=== PATIENT | female | born 1950 | race African-American/Black ===

== ENCOUNTER 2017-12-16 08:20 | Day surgery (SDC) | payer BC ==
[2017-12-15 19:26] VITALS: BMI 35.4
[2017-12-16] MEDS ORDERED: BUPIVACAINE HCL/PF 0.5% (5MG/ML) 10 ML VIAL ONE (09:25)
[2017-12-16] MEDS ORDERED: LIDOCAINE HCL 2% (20ML MULTI-DOSE VIAL) NR ONE (09:26)
--- NOTE | 2017-12-16 09:26 | HP ---
[facility] - Chief Complaint Chief Complaint: left hand pain/numbness - Past Medical History Allergies/Adverse Reactions: Allergies Allergy/AdvReac Type Severity Reaction Status Date / Time No Known Drug Allergies Allergy Verified 12/16/17 08:53 - Current Medications Current Medications: Home Medications Medication Instructions Recorded metFORMIN HCL [Metformin HCl] 500 mg PO BID 09/18/15 Losartan/Hydrochlorothiazide 1 each PO DAILY 09/20/15 [Hyzaar 100-25 Tablet] Metoprolol Tartrate 50 mg PO BID 09/20/15 Sertraline HCl 25 mg PO HS 09/20/15 Simvastatin [Zocor -] 20 mg PO HS 09/20/15 Multivit-Min/Iron/Folic/Lutein 1 each PO DAILY 12/15/17 [Centrum Silver Women Tablet] Hydrocodone/Acetaminophen [[place] 1 each PO Q6H PRN #20 tablet MDD 4 12/16/17 5-325 Tablet] [facility] Physical Exam - Physical Examination Vital Signs: Vital Signs Period Temp Pulse Resp BP Sys/[place] Pulse Ox Last 24 Hr 98.3 F 67 18 142/73 98 General Appearance: Well Nourished, Well Developed, Alert & Oriented x3 ENT: Clear Lung: Normal air movement Heart: Regular rate & rhythm Extremities: Other (left hand- + tinels, + phalens EMG + cts) Neurological: Intact, Alert, Oriented [facility]ellite Impression/Plan - Impression/Plan Impression: left cts Operative Procedure: left ctr Date to be Performed: 12/16/17
[2017-12-16] MEDS ORDERED: MIDAZOLAM HCL 2 MG/2 ML SINGLE DOSE VIAL ONE (10:13)
[2017-12-16] MEDS ORDERED: ceFAZolin SODIUM 1 GM VIAL IVPB ONE (10:50)
[2017-12-16] MEDS ORDERED: LIDOCAINE HCL 2% (50ML VIAL) PNB ONE (10:58)
[2017-12-16] MEDS ORDERED: BUPIVACAINE HCL/PF (5 MG/ML) 30 ML VIAL IJ ONE (10:58)
[2017-12-16] MEDS ORDERED: PROPOFOL 20 ML ONE (11:08)
[2017-12-16] MEDS ORDERED: LABETALOL HCL 5 MG/1 ML (100MG/20 ML VIAL) ONE (11:12)
[2017-12-16] MEDS ORDERED: ONDANSETRON 4 MG/2 ML VIAL IVPUSH PRN (11:26)
[2017-12-16] MEDS ORDERED: oxyCODONE HCL 5 MG TABLET PO PRN ×2 (11:26)
[2017-12-16] MEDS ORDERED: LACTATED RINGERS SOLUTION 1,000 ML IV SCH (11:30)
--- NOTE | 2017-12-16 12:23 | OP ---
Operative Note - Note: Operative Date: 12/16/17 ([facility]) Pre-Operative Diagnosis: left cts Operation: left ctr Post-Operative Diagnosis: Same as Pre-op Surgeon: Michael Lei Anesthesia: Local, MAC Estimated Blood Loss (mls): 0 (tourniquet) Operative Report Dictated: Yes
[2017-12-16 13:30] VITALS: TEMP 98.5
[2017-12-16 15:32] VITALS: BP 139/77; PULSE 67
--- NOTE | 2017-12-16 16:16 | SPEC ---
DATE OF OPERATION: 12/16/2017 PREOPERATIVE DIAGNOSIS: Left carpal tunnel syndrome. POSTOPERATIVE DIAGNOSIS: Left carpal tunnel syndrome. PROCEDURE: Left carpal tunnel release and tenosynovectomy. SURGEON: Michael Lei MD ASSISTANTS: None. ANESTHESIA: Luis Vickers CRNA, overseen by Jimmy Garrison MD. MAC anesthesia, local injection of 12 mL 0.5% Marcaine and 1% lidocaine mix. DRAINS: None. COMPLICATIONS: None. SPECIMEN: Tenosynovium, left wrist. BLOOD LOSS: None. BLOOD GIVEN: None. FLUID REPLACEMENT: 500 mL of Plasmalyte. INDICATIONS: This patient is a 67-year-old female with a preoperative diagnosis of severe recurrent left carpal tunnel syndrome. After understanding the potential risks, complications, alternatives, and benefits to surgical versus nonsurgical treatment, the patient elected to undergo this procedure. The patient understands that she may not get complete relief of her symptoms, including continuation of the numbness. DESCRIPTION OF PROCEDURE: The patient was brought to the operating room, peripheral IV placed and intravenous sedation was given. One gram of intravenous Ancef was given. MAC anesthesia was induced. A tourniquet was applied to the left upper arm and the left upper extremity was prepped and draped in sterile fashion. The entire case was done under 3.8 loupe magnification. A marking pen was utilized to althea out a longitudinal incision in an already existing skin crease. Twenty mL of 0.5% Marcaine mixed with 1% Lidocaine was injected in and around the surgical incision. The left upper extremity was elevated, exsanguinated with an Esmarch bandage and the tourniquet inflated to 250 mmHg. A No. 15 scalpel blade was utilized to cut down through the skin. Subcutaneous hemostasis was achieved with the bipolar cautery. Dissection was done through the superficial palmar fascia. Self-retaining retractors were placed into the wound. Under direct visualization, the transverse carpal ligament was transected with a No. 15 scalpel blade, exposing the median nerve and the contents of the carpal tunnel. The distal and proximal extents of the release were completed with a Littler scissor and checked with irrigation and my small finger. They were seen to be complete. Limited dissection was done on the radial side of the median nerve and more extensive dissection was done on the ulnar side of the median nerve. The patients nerve was seen to be quite compressed by epineurium and therefore a limited epineurotomy was performed. A Ragnell retractor was used to gently retract the median nerve in a radial direction. The patient had a lot of tenosynovitis and therefore a tenosynovectomy was performed off all 9 flexor tendons. This was passed off the field as tenosynovium, left wrist. The floor of the carpal tunnel was checked. There were no abnormal masses or ganglion cysts. The area was copiously irrigated and washed out and closure begun. Undyed 4-0 Vicryl was used to close the deep dermal layer. Final skin reapproximation was done with horizontal mattress 4-0 nylon sutures. The area was then washed and dried, covered with Xeroform, 4x4s, fluffs between the fingers, Webril and a 4-inch plaster roll was utilized to make a volar splint, which was then wrapped with Suzanne and Coban. The tourniquet was taken down after a total tourniquet time of 18 minutes. There were no complications during the case. The patient tolerated the procedure well and was brought to the ambulatory recovery room in stable condition. Jose [id number]
--- NOTE | 2017-12-17 15:47 | PATH ---
Surgical Pathology Report Patient Name: BARBIE SINGH [facility]. Rec. #: [id number] /Age/Gender: 1950 (Age: 67) / F Account: [id number] Location: [facility] SURGICAL Taken: 12/16/2017 Received: 12/16/2017 Reported: 12/17/2017 Physicians: Michael Lei M.D. Specimen(s) Received TENOSYNOVIUM Clinical History Left carpal syndrome Final Diagnosis TENOSYNOVIUM, LEFT, EXCISION: BENIGN DENSE FIBROCONNECTIVE TISSUE. Electronically Signed Yanet Jenkins M.D. Gross Description Received in formalin labeled "tenosynovium," is a 1.4 x 0.9 x 0.2 cm aggregate of multiple troy-yellow portions of soft tissue, consistent with tenosynovium. The specimen is entirely submitted in one cassette. /12/16/201712/16/2017
== END 2017-12-16 14:20 | disposition home or self-care (01) ==
LOC: JASU-SURG 08:20
PROVIDERS: ATTEND Orthopaedic Surgery
PROC: 01N50ZZ Release Median Nerve, Open Approach (ICD-10-PCS; principal; 2017-12-16 10:00)
DX: G56.02 Carpal tunnel syndrome, left upper limb (principal); E11.9 Type 2 diabetes mellitus without complications; I10 Essential (primary) hypertension; Z79.84 Long term (current) use of oral hypoglycemic drugs
CPT/HCPCS: 82962; 88304-TC; 94760

== ENCOUNTER 2020-04-12 21:56 | Inpatient (IN) | payer OTHER, BC ==
[2020-04-12 23:18] LABS: BASO % 1.6 % (0-2.0); EOS % 7.1 % (0-4.5); HEMATOCRIT 43.3 % (32.4-45.2); HEMOGLOBIN 14.5 GM/dL (10.7-15.3); LYMPH % 35.1 % (8-40); MCH 30.1 pg (25.7-33.7); MCHC 33.4 g/dl (32.0-36.0); MEAN CELL VOLUME 90.1 fl (80-96); MEAN PLT VOLUME 8.3 fl (7.5-11.1); MONO % 9.9 % (3.8-10.2); NEUT % 46.3 % (42.8-82.8); PLATELET COUNT 259 K/MM3 (134-434); RBC 4.81 M/mm3 (3.60-5.2); RDW 13.2 % (11.6-15.6); WHITE BLOOD COUNT 9.3 K/mm3 (4.0-10.0)
[2020-04-12 23:41] LABS: CHLORIDE 104 mmol/L (98-107); POTASSIUM 3.8 mmol/L (3.5-5.1); SODIUM 140 mmol/L (136-145)
[2020-04-12 23:42] LABS: CALCIUM 9.4 mg/dL (8.5-10.1)
[2020-04-12 23:43] LABS: ALBUMIN 3.6 g/dl (3.4-5.0); ANION GAP 9 MMOL/L (8-16); BLOOD UREA NITROGEN 13.8 mg/dL (7-18); CO2 28 mmol/L (21-32); GLUCOSE,RANDOM 119 mg/dL (74-106)
[2020-04-12 23:46] LABS: CREATININE 0.8 mg/dL (0.55-1.3); SGOT/AST 22 U/L (15-37); SGPT/ALT 20 U/L (13-61)
[2020-04-12 23:48] LABS: BILIRUBIN,TOTAL 0.4 mg/dL (0.2-1); TOT PROT 7.4 g/dl (6.4-8.2)
[2020-04-12 23:50] LABS: ALK PHOS 93 U/L (45-117)
[2020-04-13] MEDS ORDERED: ASPIRIN 325 MG TABLET PO ONE (00:58)
[2020-04-13] MEDS ORDERED: ASPIRIN 325 MG ENTERIC COATED TABLET (FP) ONE (01:36)
[2020-04-13 02:09] LABS: EPI CELLS 5 /uL (0-25.1); HYALINE CASTS 0 /uL (0-3.1); URINE APPEARANCE CLEAR; URINE BACTERIA 522 /uL (0-1359); URINE BILIRUBIN NEGATIVE (NEGATIVE); URINE COLOR YELLOW; URINE GLUCOSE (UA) NEGATIVE (NEGATIVE); URINE KETONE NEGATIVE (NEGATIVE); URINE LEUK ESTERASE 1+ (NEGATIVE); URINE NITRITE NEGATIVE (NEGATIVE); URINE PROTEIN NEGATIVE (NEGATIVE); URINE RBC 13 /uL (0-23.9); URINE WBC 116 /uL (0-25.8)
[2020-04-13] MEDS ORDERED: CEFTRIAXONE 1 GM in DEXTROSE 5%-WATER - 100 ML IVPB ONE (02:24)
[2020-04-13] MEDS ORDERED: CEFTRIAXONE 1 GM/50 ML BAG ONE (03:40)
[2020-04-13] MEDS: INSULIN SLIDING SCALE (NOVOLOG) 1 VIAL SQ SCH ×3 (07:50→16:54)
[2020-04-13 08:19] LABS: BASO % 1.1 % (0-2.0); EOS % 7.1 % (0-4.5); HEMATOCRIT 41.5 % (32.4-45.2); HEMOGLOBIN 13.7 GM/dL (10.7-15.3); LYMPH % 36.6 % (8-40); MCH 29.7 pg (25.7-33.7); MCHC 33.1 g/dl (32.0-36.0); MEAN CELL VOLUME 89.7 fl (80-96); MEAN PLT VOLUME 8.6 fl (7.5-11.1); MONO % 7.9 % (3.8-10.2); NEUT % 47.3 % (42.8-82.8); PLATELET COUNT 233 K/MM3 (134-434); RBC 4.63 M/mm3 (3.60-5.2); RDW 13.6 % (11.6-15.6); WHITE BLOOD COUNT 7.9 K/mm3 (4.0-10.0)
[2020-04-13 08:31] LABS: POTASSIUM 3.4 mmol/L (3.5-5.1)
[2020-04-13 08:31] LABS: PHENCYCLIDINE,URINE NEGATIVE ng/ml (CUTOFF=25); URINE AMPHETAMINES NEGATIVE ng/ml (CUTOFF=500); URINE BENZODIAZEPINES NEGATIVE ng/ml (CUTOFF=200)
[2020-04-13 08:37] LABS: ALBUMIN 3.7 g/dl (3.4-5.0); BLOOD UREA NITROGEN 12.1 mg/dL (7-18); CALCIUM 9.2 mg/dL (8.5-10.1); MAGNESIUM 1.8 mg/dL (1.8-2.4)
[2020-04-13 08:41] LABS: CREATININE 0.7 mg/dL (0.55-1.3)
[2020-04-13 08:42] LABS: METHADONE, UR NEGATIVE ng/ml (CUTOFF=300); OPIATES, URI NEGATIVE ng/ml (CUTOFF=300); URINE BARBITURATES NEGATIVE ng/ml (CUTOFF=200)
[2020-04-13 08:43] LABS: BILIRUBIN,TOTAL 0.5 mg/dL (0.2-1); TOT PROT 7.2 g/dl (6.4-8.2)
[2020-04-13 08:45] LABS: COCAINE, UR POSITIVE ng/ml (CUTOFF=300)
[2020-04-13] MEDS ORDERED: ENOXAPARIN NA (PORCINE) 40 MG/0.4 ML DISP.SYRIN SQ ONE (10:28)
[2020-04-13] MEDS: ENOXAPARIN NA (PORCINE) 40 MG/0.4 ML DISP.SYRIN SQ SCH (10:34)
[2020-04-13] MEDS: METOPROLOL TARTRATE 50 MG TABLET (FP) PO SCH (21:42)
[2020-04-13 22:45] VITALS: BMI 37.3
[2020-04-14] MEDS: INSULIN SLIDING SCALE (NOVOLOG) 1 VIAL SQ SCH ×3 (06:04→16:29)
[2020-04-14 08:53] LABS: BASO % 1.2 % (0-2.0); EOS % 5.8 % (0-4.5); HEMATOCRIT 40.9 % (32.4-45.2); HEMOGLOBIN 13.3 GM/dL (10.7-15.3); MCH 29.3 pg (25.7-33.7); MCHC 32.5 g/dl (32.0-36.0); MEAN PLT VOLUME 8.3 fl (7.5-11.1); MONO % 8.7 % (3.8-10.2); NEUT % 52.3 % (42.8-82.8); PLATELET COUNT 223 K/MM3 (134-434); RBC 4.55 M/mm3 (3.60-5.2); RDW 13.7 % (11.6-15.6); WHITE BLOOD COUNT 6.7 K/mm3 (4.0-10.0)
[2020-04-14 09:00] LABS: POTASSIUM 3.7 mmol/L (3.5-5.1)
[2020-04-14 09:04] LABS: CALCIUM 8.9 mg/dL (8.5-10.1)
[2020-04-14 09:05] LABS: BLOOD UREA NITROGEN 14.1 mg/dL (7-18)
[2020-04-14 09:08] LABS: CREATININE 0.6 mg/dL (0.55-1.3)
[2020-04-14] MEDS ORDERED: DEXTROSE 5%-WATER - 50 ML IVPB ONE (09:49)
[2020-04-14] MEDS ORDERED: cefTRIAXone SODIUM 1 GM VIAL ONE (09:49)
[2020-04-14] MEDS: METOPROLOL TARTRATE 50 MG TABLET (FP) PO SCH (10:00)
[2020-04-14] MEDS: CEFTRIAXONE 1 GM in DEXTROSE 5%-WATER - 50 ML IVPB SCH (10:00)
[2020-04-14] MEDS: ASPIRIN 81 MG CHEWABLE TABLETS PO SCH (10:00)
[2020-04-14] MEDS: ENOXAPARIN NA (PORCINE) 40 MG/0.4 ML DISP.SYRIN SQ SCH (11:15)
[2020-04-14] MEDS: LOSARTAN 50MG/HCTZ 12.5MG 1 TAB PO SCH (11:15)
[2020-04-14] MEDS: ATORVASTATIN CA 40 MG TABLET (FP) PO SCH (21:10)
[2020-04-15] MEDS: INSULIN SLIDING SCALE (NOVOLOG) 1 VIAL SQ SCH ×3 (06:36→17:23)
[2020-04-15 06:39] LABS: HEMATOCRIT 40.4 % (32.4-45.2); HEMOGLOBIN 13.5 GM/dL (10.7-15.3); MCH 29.9 pg (25.7-33.7); MCHC 33.5 g/dl (32.0-36.0); MEAN CELL VOLUME 89.5 fl (80-96); MEAN PLT VOLUME 8.3 fl (7.5-11.1); PLATELET COUNT 232 K/MM3 (134-434); RBC 4.51 M/mm3 (3.60-5.2); RDW 13.3 % (11.6-15.6); WHITE BLOOD COUNT 6.6 K/mm3 (4.0-10.0)
[2020-04-15 06:45] LABS: POTASSIUM 3.5 mmol/L (3.5-5.1)
[2020-04-15 06:49] LABS: CALCIUM 8.8 mg/dL (8.5-10.1)
[2020-04-15 06:50] LABS: BLOOD UREA NITROGEN 14.9 mg/dL (7-18)
[2020-04-15 06:53] LABS: CREATININE 0.6 mg/dL (0.55-1.3)
[2020-04-15] MEDS ORDERED: cefTRIAXone SODIUM 1 GM VIAL ONE (08:32)
[2020-04-15] MEDS ORDERED: DEXTROSE 5%-WATER - 50 ML IVPB ONE (08:32)
[2020-04-15] MEDS: LOSARTAN 50MG/HCTZ 12.5MG 1 TAB PO SCH (09:22)
[2020-04-15] MEDS: ENOXAPARIN NA (PORCINE) 40 MG/0.4 ML DISP.SYRIN SQ SCH (09:23)
[2020-04-15] MEDS: CEFTRIAXONE 1 GM in DEXTROSE 5%-WATER - 50 ML IVPB SCH (09:23)
[2020-04-15] MEDS: ASPIRIN 81 MG CHEWABLE TABLETS PO SCH (09:23)
[2020-04-15] MEDS: ATORVASTATIN CA 40 MG TABLET (FP) PO SCH (21:22)
[2020-04-16] MEDS: INSULIN SLIDING SCALE (NOVOLOG) 1 VIAL SQ SCH ×3 (06:44→17:52)
[2020-04-16] MEDS ORDERED: DEXTROSE 5%-WATER - 50 ML IVPB ONE (08:51)
[2020-04-16] MEDS ORDERED: cefTRIAXone SODIUM 1 GM VIAL ONE (08:51)
[2020-04-16] MEDS: ENOXAPARIN NA (PORCINE) 40 MG/0.4 ML DISP.SYRIN SQ SCH (09:08)
[2020-04-16] MEDS: CEFTRIAXONE 1 GM in DEXTROSE 5%-WATER - 50 ML IVPB SCH (09:08)
[2020-04-16] MEDS: ASPIRIN 81 MG CHEWABLE TABLETS PO SCH (09:08)
[2020-04-16] MEDS: LOSARTAN 50MG/HCTZ 12.5MG 1 TAB PO SCH (09:08)
[2020-04-16] MEDS: ATORVASTATIN CA 40 MG TABLET (FP) PO SCH (21:38)
[2020-04-17] MEDS: INSULIN SLIDING SCALE (NOVOLOG) 1 VIAL SQ SCH ×3 (06:05→16:59)
[2020-04-17 08:16] LABS: BASO % 1.1 % (0-2.0); EOS % 6.3 % (0-4.5); HEMATOCRIT 41.3 % (32.4-45.2); HEMOGLOBIN 13.9 GM/dL (10.7-15.3); LYMPH % 32.6 % (8-40); MCH 30.6 pg (25.7-33.7); MCHC 33.7 g/dl (32.0-36.0); MEAN CELL VOLUME 90.9 fl (80-96); MEAN PLT VOLUME 8.7 fl (7.5-11.1); MONO % 9.2 % (3.8-10.2); NEUT % 50.8 % (42.8-82.8); PLATELET COUNT 232 K/MM3 (134-434); RBC 4.55 M/mm3 (3.60-5.2); RDW 13.6 % (11.6-15.6); WHITE BLOOD COUNT 7.6 K/mm3 (4.0-10.0)
[2020-04-17 08:24] LABS: CHLORIDE 107 mmol/L (98-107); POTASSIUM 3.4 mmol/L (3.5-5.1); SODIUM 143 mmol/L (136-145)
[2020-04-17 08:33] LABS: ANION GAP 11 MMOL/L (8-16); CALCIUM 9.1 mg/dL (8.5-10.1); CO2 25 mmol/L (21-32)
[2020-04-17 08:34] LABS: ALBUMIN 3.5 g/dl (3.4-5.0); BLOOD UREA NITROGEN 13.8 mg/dL (7-18); GLUCOSE,RANDOM 109 mg/dL (74-106); MAGNESIUM 1.8 mg/dL (1.8-2.4)
[2020-04-17 08:36] LABS: PHOSPHOROUS 3.9 mg/dL (2.5-4.9); SGPT/ALT 25 U/L (13-61)
[2020-04-17 08:37] LABS: BILIRUBIN,TOTAL 0.7 mg/dL (0.2-1); CREATININE 0.5 mg/dL (0.55-1.3); SGOT/AST 21 U/L (15-37)
[2020-04-17 08:38] LABS: TOT PROT 7.1 g/dl (6.4-8.2)
[2020-04-17 08:39] LABS: ALK PHOS 72 U/L (45-117)
[2020-04-17] MEDS ORDERED: POTASSIUM CHLORIDE ORAL LIQUID 20 MEQ/15 ML PO ONE (09:00)
[2020-04-17] MEDS ORDERED: ATORVASTATIN CA 80 MG TABLET (FP) PO SCH (10:17)
[2020-04-17] MEDS ORDERED: cefTRIAXone SODIUM 1 GM VIAL ONE (10:20)
[2020-04-17] MEDS ORDERED: DEXTROSE 5%-WATER - 50 ML IVPB ONE (10:21)
[2020-04-17] MEDS ORDERED: POTASSIUM CHLORIDE 40 MEQ in SODIUM CHLORIDE 500 ML IV STA (10:57)
[2020-04-17] MEDS: ASPIRIN 81 MG CHEWABLE TABLETS PO SCH (11:05)
[2020-04-17] MEDS: CEFTRIAXONE 1 GM in DEXTROSE 5%-WATER - 50 ML IVPB SCH (11:06)
[2020-04-17] MEDS: LOSARTAN POTASSIUM 50 MG TABLET PO SCH (11:06)
[2020-04-17] MEDS: ENOXAPARIN NA (PORCINE) 40 MG/0.4 ML DISP.SYRIN SQ SCH (11:06)
[2020-04-17] MEDS ORDERED: ASPIRIN 325 MG TABLET PO SCH (11:20)
[2020-04-17] MEDS ORDERED: ASPIRIN 81 MG CHEWABLE TABLETS PO SCH (14:24)
[2020-04-17] MEDS: CLOPIDOGREL BISULFATE 75 MG TABLET (FP) PO SCH (15:19)
[2020-04-17 20:17] LABS: CHOLESTEROL 163 mg/dL (50-200)
[2020-04-17 20:18] LABS: LDL CHOLESTEROL (ONLY SJRH) 101 mg/dL (5-100); TRIGLYCERIDES 120 mg/dL (0-150)
[2020-04-17 20:20] LABS: HDL CHOLESTEROL 51 mg/dL (40-60)
[2020-04-18] MEDS: INSULIN SLIDING SCALE (NOVOLOG) 1 VIAL SQ SCH ×3 (06:06→16:45)
[2020-04-18 07:46] LABS: BASO % 1.4 % (0-2.0); EOS % 6.9 % (0-4.5); HEMOGLOBIN 13.7 GM/dL (10.7-15.3); LYMPH % 36.8 % (8-40); MCH 30.3 pg (25.7-33.7); MCHC 33.3 g/dl (32.0-36.0); MEAN PLT VOLUME 8.6 fl (7.5-11.1); MONO % 10.4 % (3.8-10.2); NEUT % 44.5 % (42.8-82.8); PLATELET COUNT 237 K/MM3 (134-434); RBC 4.51 M/mm3 (3.60-5.2); RDW 13.9 % (11.6-15.6); WHITE BLOOD COUNT 6.4 K/mm3 (4.0-10.0)
[2020-04-18 08:09] LABS: POTASSIUM 4.4 mmol/L (3.5-5.1)
[2020-04-18 08:13] LABS: ALBUMIN 3.5 g/dl (3.4-5.0)
[2020-04-18 08:16] LABS: MAGNESIUM 1.9 mg/dL (1.8-2.4)
[2020-04-18 08:17] LABS: CREATININE 0.6 mg/dL (0.55-1.3)
[2020-04-18 08:20] LABS: CALCIUM 9.4 mg/dL (8.5-10.1)
[2020-04-18 08:21] LABS: BLOOD UREA NITROGEN 15.1 mg/dL (7-18)
[2020-04-18 08:23] LABS: BILIRUBIN,TOTAL 0.6 mg/dL (0.2-1); PHOSPHOROUS 4.6 mg/dL (2.5-4.9)
[2020-04-18] MEDS ORDERED: DEXTROSE 5%-WATER - 50 ML IVPB ONE (09:50)
[2020-04-18] MEDS ORDERED: cefTRIAXone SODIUM 1 GM VIAL ONE (09:50)
[2020-04-18] MEDS: CLOPIDOGREL BISULFATE 75 MG TABLET (FP) PO SCH (09:54)
[2020-04-18] MEDS: LOSARTAN POTASSIUM 50 MG TABLET PO SCH (09:54)
[2020-04-18] MEDS: CEFTRIAXONE 1 GM in DEXTROSE 5%-WATER - 50 ML IVPB SCH (09:54)
[2020-04-18] MEDS: ENOXAPARIN NA (PORCINE) 40 MG/0.4 ML DISP.SYRIN SQ SCH (09:54)
[2020-04-18 15:41] VITALS: BP 132/65; PULSE 82; TEMP 97.6
== END 2020-04-18 16:33 | DRG 917 ==
LOC: JER 21:56 → JERBED 04-13 02:40 → J7W 04-13 20:48 → J8W 04-13 23:32 → J4W 04-14 21:00
PROVIDERS: ADMIT Hospitalist; ATTEND Internal Medicine
DX: T40.5X1A Poisoning by cocaine, accidental (unintentional), initial encounter (principal); I63.9 Cerebral infarction, unspecified; G92 Toxic encephalopathy; N39.0 Urinary tract infection, site not specified; R47.01 Aphasia; I10 Essential (primary) hypertension; E11.9 Type 2 diabetes mellitus without complications; F17.210 Nicotine dependence, cigarettes, uncomplicated; Z79.84 Long term (current) use of oral hypoglycemic drugs; F32.9 Major depressive disorder, single episode, unspecified; E66.9 Obesity, unspecified; Z68.37 Body mass index [BMI] 37.0-37.9, adult; I35.0 Nonrheumatic aortic (valve) stenosis; R01.1 Cardiac murmur, unspecified; F14.10 Cocaine abuse, uncomplicated; Z20.828 Contact with and (suspected) exposure to other viral communicable diseases; Y92.89 Other specified places as the place of occurrence of the external cause
CPT/HCPCS: 36415; 70450-TC; 70551-TC; 71045-TC-FY; 80048; 80053; 80061; 80307; 81003; 82550; 82962; 83036; 83721; 83735; 84100; 84443; 84484; 85025; 85027; 87086; 93005; 93010; 93306-TC; 93880-TC; 97116-GP; 97161-GP; 99285-25; C9803; U0003